=== PATIENT | female | born 1970 | race Caucasian/White ===

== ENCOUNTER → 2016-08-29 | Outpatient (CLI) | payer MEDICARE ==
[~2016-08-29] MED LIST: LIDOCAINE 1% MDV 20ML VIAL As Ordered ONE
--- NOTE | 2016-08-29 11:53 | REP ---
Digital diagnostic unilateral left breast mammography with CAD: Two views. History: Marker clip placement views post stereotactic needle biopsy. Nodule noted in the upper outer quadrant left breast on comparison mammography June 29, 2016. Findings: CC and true MLO views of the left breast demonstrate the marker clip from today's biopsy in good position relative to the position of the target nodule. There is some post biopsy edema. No cheri hematoma. Impression: Marker clip in good position. Signed by Flaco Stokes MD 08/29/2016 12:18 P
--- NOTE | 2016-08-30 15:24 | REP ---
STEREOTACTIC BIOPSY OF THE LEFT BREAST: The procedure was performed by Lubna CHAND, under the direct supervision of Dr Stokes. Following universal protocol, patient and site verification was performed with a time-out prior to the procedure. After obtaining informed consent, the patient was positioned on her right side in the biopsy chair, and the target was localized using digital imaging. A lateral medial approach was used. The skin was cleansed with Chloraprep. Cutaneous and deeper subcutaneous anesthesia was achieved using 8 mL of 1% Xylocaine. A small scalpel incision was made. The Mammotome biopsy device was inserted and its accuracy of position was confirmed with pre-fire imaging prior to the first pass. A total of six core biopsy specimens were obtained. A marker clip was deployed to adilia the biopsy site. Postprocedure craniocaudal and mediolateral projections disclose the clip to be at the target site. Following the procedure, the wound was cleansed and compressed. Steri-Strips and sterile gauze were applied and the patient was given post biopsy instructions. She left the department in good condition. Successful stereotactic biopsy procedure. Reviewed by MANNIE Lovelace 08/30/2016 03:35 PEdited and Signed by Flaco Stokes MD 08/30/2016 08:24 P
== END ==
LOC: M RADPRO 09:35
PROVIDERS: ATTEND Surgery
DX: D24.2 Benign neoplasm of left breast (principal); R92.8 Other abnormal and inconclusive findings on diagnostic imaging of breast; N63 Unspecified lump in breast

== ENCOUNTER → 2018-05-31 | Outpatient (REF) | payer MEDICARE | LOC: M LAB LCGH 15:16 | DX: N92.6 Irregular menstruation, unspecified (principal) ==

== ENCOUNTER → 2018-06-27 | Outpatient (REF) | payer OTHER | LOC: M LAB LCGH 12:53 | DX: N93.9 Abnormal uterine and vaginal bleeding, unspecified (principal); N85.2 Hypertrophy of uterus ==

== ENCOUNTER → 2021-03-22 | Outpatient (CLI) | payer MEDICARE ==
[~2021-03-22] MED LIST changes: +**SFHN** LIDOCAINE 1% MDV 20ML VIAL ONE; +**SFHN** SODIUM BICARBONATE 8.4% 10MEQ 10ML VIAL ONE; +CYCL10TA20 PO; +GABA-283 PO; -LIDOCAINE 1% MDV 20ML VIAL As Ordered ONE; +LISI20TA35 PO; +TRAM37.53 PO
[2021-03-22 12:10] VITALS: BP 118/74
== END ==
LOC: M WHCPRO 10:21
PROVIDERS: ATTEND Family Medicine
DX: R92.1 Mammographic calcification found on diagnostic imaging of breast (principal)